=== PATIENT | male | born 1950 | race Caucasian/White ===

== ENCOUNTER 2024-11-21 09:37 | Outpatient (CLI) | payer OTHER ==
[2024-11-21 10:09] LABS: #Basophils 0.1 thou/uL (0.0-0.2); #Eosinophils 0.1 thou/uL (0.0-0.7); #Lymphocytes 1.9 thou/uL (1.20-3.40); #Monocytes 0.4 thou/uL (0.11-0.59); #Neutrophils 4.8 thou/uL (1.40-6.50); %Basophils 0.8 % (0.0-1.0); %Eosinophils 2.0 % (0.0-10.0); %Lymphocytes 26.1 % (21.0-51.0); %Monocytes 5.6 % (0.0-10.0); %Neutrophils 65.5 % (42.0-75.0); Hematocrit 44.7 % (42.0-52.0); Hemoglobin 14.4 g/dL (14.0-18.0); Mean Corpuscular Hemoglobin 28.6 pg (27.0-31.0); Mean Corpuscular Volume 88.9 fl (78.0-98.0); Platelet Count 265 10x3/uL (130-400); Red Blood Cell (RBC) Count 5.03 mill/uL (4.70-6.10); White Blood Cell (WBC) Count 7.4 10x3/uL (4.8-10.8)
[2024-11-21 10:24] LABS: ALT (SGPT) 17 U/L (Less than 45); AST (SGOT) 17 U/L (11-34); Albumin 4.1 g/dL (3.1-4.5); Alkaline Phosphatase 87 U/L (40-110); Anion Gap 16 mmol/L (10-20); BUN (Urea Nitrogen) 14 mg/dL (8.4-25.7); Bilirubin, Total 0.8 mg/dL (0.3-1.2); Calc. Creatinine Clearance 0 mL/min (70-130); Calcium 9.1 mg/dL (7.8-10.44); Carbon Dioxide 24 mmol/L (23-31); Cardiac Risk 3.4 (Less than 4.5); Chloride 102 mmol/L (98-107); Cholesterol 122 mg/dl (< 200 Desired); Globulin 3.0 g/dL (2.4-3.5); Glucose 103 mg/dL (83-110); HDL Cholesterol 36 mg/dL (>60 Neg Risk); LDL Cholesterol, Calculated 61 mg/dL; Potassium 4.0 mmol/L (3.5-5.1); Sodium 138 mmol/L (136-145); Triglycerides 123 mg/dL (Less than 150)
== END 2024-11-21 09:38 | disposition home or self-care (01) ==
LOC: MADLAB 09:37
PROVIDERS: ATTEND Family Medicine
DX: E11.9 Type 2 diabetes mellitus without complications (principal)
CPT/HCPCS: 36415; 80053; 80061; 83036; 85025